=== PATIENT | male | born 1990 | race Caucasian/White ===

== ENCOUNTER 2024-11-03 12:58 | Outpatient (OUT) | payer OTHER, SELFPAY ==
--- NOTE | 2024-11-03 13:08 | XR_ITS ---
[facility] [id number] Patient Name: OSWALDO CANELA MRN: [id number] date: 1990 Sex: M Assigned Patient Location: [facility] Current Patient Location: Accession/Order Number: [id number] Exam Date: 11/03/2024 13:17 Report Date: 11/04/2024 09:25 At the request of: LORENZO DEVI Procedure: XR lumbar spine 2-3V EXAMINATION: XR lumbar spine 2-3V HISTORY: Back pain, M54.9 COMPARISON: No relevant comparison available. FINDINGS: BONES: Normal. No significant spondylosis, scoliosis, fracture, or visible bony lesion. DISC SPACES: Normal. No significant disc height narrowing, subluxation, or endplate abnormality. PARASPINOUS: Negative. No paraspinous abnormality is seen. OTHER: Negative. XR/XR lumbar spine 2-3V IMPRESSION: No acute radiographic abnormality Electronically authenticated by: JONO SIGALA Date: 11/04/2024 09:25
== END 2024-11-03 12:59 | disposition home or self-care (01) ==
PROVIDERS: PCP Family Medicine; Visit Provider Nurse Practitioner Family
DX: M54.9 Dorsalgia, unspecified (principal)
CPT/HCPCS: 72100

== ENCOUNTER 2024-11-05 07:50 | Outpatient (RCR) | payer OTHER, SELFPAY | END 2024-12-01 08:16 | disposition home or self-care (01) | LOC: PT 07:50 | PROVIDERS: PCP Family Medicine; Visit Provider Nurse Practitioner Family | DX: M54.9 Dorsalgia, unspecified (principal) | CPT/HCPCS: 97010; 97012; 97014; 97110; 97140; 97161 ==